=== PATIENT | female | born 1970 | race Caucasian/White ===

== ENCOUNTER 2017-09-16 12:20 | Emergency (ER) | payer MEDICARE, BC ==
[2017-09-16 12:33] VITALS: BP 140/55
--- NOTE | 2017-09-16 13:28 | EDM.PDOC ---
ED HPI GENERAL MEDICAL PROBLEM - General Chief Complaint: General Stated Complaint: RIGHT HEEL PAIN Time Seen by Provider: 09/16/17 13:05 Source of Information: Reports: Patient History Limitations: Reports: No Limitations - History of Present Illness INITIAL COMMENTS - FREE TEXT/NARRATIVE: 47 YO WF presents to ER with 3 days of right heel pain. Pt denies any injury. Pt reports pain is worse in am or walking barefoot. Pt denies any skin changes or redness swelling to foot. Pt denies any previous foot pain or injuries. Pt reports she wears flipflops a lot. Onset Date: 09/13/17 Duration: Day(s): (3) Location: Reports: Lower Extremity, Right Quality: Reports: Ache Severity: Mild Improves with: Reports: Rest Worsens with: Reports: Movement Associated Symptoms: Reports: No Other Symptoms Treatments RADIOACTIVITY TECHNICIAN: Reports: Acetaminophen, Other (see below) Other Treatments RADIOACTIVITY TECHNICIAN: Rup Rub - Related Data Allergies Allergy/AdvReac Type Severity Reaction Status Date / Time ibuprofen Allergy Airway Verified 09/16/17 12:33 Tightness Home Meds: Home Meds Cetirizine [ZyrTEC] 10 mg PO BID 05/30/15 [History] Gabapentin [Gabapentin] 300 - 600 mg PO ASDIRECTED PRN 05/30/15 [History] Glucagon,Human Recombinant [Glucagon Emergency Kit] 1 mg PO ASDIRECTED PRN 05/30 [History] Insulin Lispro [Humalog] 45 - 60 units SQ ASDIRECTED 05/30/15 [History] Levothyroxine 150 mcg PO ACBREAKFAST 05/30/15 [History] Lisinopril [Lisinopril] 10 mg PO DAILY 05/30/15 [History] Milnacipran [Savella] 50 mg PO BID 05/30/15 [History] Topiramate [Topiramate] 100 mg PO BEDTIME 05/30/15 [History] Venlafaxine HCl [Venlafaxine ER] 150 mg PO DAILY 05/30/15 [History] atorvaSTATin [Lipitor] 20 mg PO DAILY 05/30/15 [History] cloNIDine HCl [Clonidine HCl] 0.1 mg PO BID 05/30/15 [History] Aspirin [Halfprin] 81 mg PO BRK 06/05/16 [History] Calcium Citrate/Vitamin D3 [Calcium Citrate + D] 1 tab PO BIDMEALS 06/05/16 [ History] Cholecalciferol (Vitamin D3) [D-2000] 2,000 unit PO DAILY 06/05/16 [History] Cyclobenzaprine [Flexeril] 10 mg PO BID PRN 06/05/16 [History] Diclofenac Sodium [Voltaren] 75 mg PO BIDMEALS PRN 06/05/16 [History] Multivitamin [Multivitamins] 1 each PO DAILY 06/05/16 [History] Ranitidine HCl [Ranitidine] 150 mg PO ASDIRECTED PRN 06/05/16 [History] Rup Rub 1 applic TOP TID 06/05/16 [History] metFORMIN [Glucophage XR] 1,000 mg PO DAILY 06/05/16 [History] traMADol [Ultram] 50 mg PO ASDIRECTED PRN 06/05/16 [History] Past Medical History HEENT History: Reports: Cataract, Impaired Vision Cardiovascular History: Reports: Blood Clots/VTE/DVT, High Cholesterol, Hypertension Respiratory History: Reports: Sleep Apnea Gastrointestinal History: Reports: None Other Gastrointestinal History: gastric bypass with revision Genitourinary History: Reports: None Other OB/BYN History: hystroectomy Musculoskeletal History: Reports: Fracture, Fibromyalgia Neurological History: Reports: Migraines Psychiatric History: Reports: Depression Endocrine/Metabolic History: Reports: Diabetes, Type I Oncologic (Cancer) History: Reports: Squamous Cell Carcinoma Dermatologic History: Reports: Other (See Below) Other Dermatologic History: Rash - Infectious Disease History Infectious Disease History: Reports: Shingles - Past Surgical History HEENT Surgical History: Reports: Cataract Surgery Female Surgical History: Reports: Section, Hysterectomy Neurological Surgical History: Reports: None Musculoskeletal Surgical History: Reports: None Social & Family History - Family History Family Medical History: Noncontributory Cardiac: Reports: Angina, Hypertension Psychiatric: Reports: Depression - Tobacco Use Smoking Status *Q: Never Smoker Second Hand Smoke Exposure: No - Caffeine Use Caffeine Use: Reports: None - Alcohol Use Days Per Week of Alcohol Use: 0 - Recreational Drug Use Recreational Drug Use: No ED ROS GENERAL - Review of Systems Review Of Systems: See Below Constitutional: Reports: No Symptoms HEENT: Reports: No Symptoms Respiratory: Reports: No Symptoms Cardiovascular: Reports: No Symptoms Endocrine: Reports: No Symptoms GI/Abdominal: Reports: No Symptoms : Reports: No Symptoms Musculoskeletal: Reports: Foot Pain (right heel) Skin: Reports: No Symptoms Neurological: Reports: No Symptoms Psychiatric: Reports: No Symptoms Hematologic/Lymphatic: Reports: No Symptoms Immunologic: Reports: No Symptoms ED EXAM, GENERAL - Physical Exam Exam: See Below Exam Limited By: No Limitations General Appearance: Alert, WD/WN, No Apparent Distress Neck: Normal Inspection, Supple, Non-Tender, Full Range of Motion Respiratory/Chest: No Respiratory Distress, Lungs Clear, Normal Breath Sounds, No Accessory Muscle Use, Chest Non-Tender Cardiovascular: Normal Peripheral Pulses, Regular Rate, Rhythm, No Edema, No Gallop, No JVD, No Murmur, No Rub GI/Abdominal: Normal Bowel Sounds, Soft, Non-Tender, No Organomegaly, No Distention, No Abnormal Bruit, No Mass Back Exam: Normal Inspection, Full Range of Motion, NT Extremities: Normal Range of Motion, No Pedal Edema, Normal Capillary Refill, Other (right heel pain- point tender to mid-lateral aspect of right heel). No: Pallor, Redness Neurological: Alert, Oriented, CN II-XII Intact, Normal Cognition, Normal Gait, Normal Reflexes, No Motor/Sensory Deficits Psychiatric: Normal Affect, Normal Mood Skin Exam: Warm, Dry, Intact, Normal Color, No Rash Lymphatic: No Adenopathy Course - Vital Signs Last Recorded V/S: Last Vital Signs Temp 35.8 C 09/16/17 12:26 Pulse 95 09/16/17 12:26 Resp 18 09/16/17 12:26 BP 140/55 L 09/16/17 12:26 Pulse Ox 100 09/16/17 12:26 - Orders/Labs/Meds Orders: Active Orders 24 hr Category Date Time Status Foot Comp Min 3V Rt [CR] Stat Exams 09/16/17 12:58 Ordered Departure - Departure Time of Disposition: 13:33 Disposition: Home, Self-Care 01 Condition: Good Clinical Impression: Pain of right heel - Discharge Information Instructions: Flat Feet, Plantar Fasciitis Referrals: Gill Burger MD [Primary Care Provider] - - My Orders Last 24 Hours: My Active Orders 09/16/17 12:58 Foot Comp Min 3V Rt [CR] Stat - Assessment/Plan Last 24 Hours: My Active Orders 09/16/17 12:58 Foot Comp Min 3V Rt [CR] Stat Assessment:: 1. right heel pain- possible neuroma? Plan: 1. discharge home 2. follow up with PCP for podiatry referral 3. Naproxyn for pain PRN 4. cushion heel cup 5. return to ER for worsening symptoms
== END 2017-09-16 13:41 | disposition home or self-care (01) ==
LOC: KA.ED 12:20
DX: M79.671 Pain in right foot (principal)
CPT/HCPCS: 73630-RT; 99283

== ENCOUNTER 2021-07-27 11:19 | Observation (INO) | payer MEDICARE, OTHER ==
[2021-07-27] MEDS ORDERED: Sodium Chloride 0.9% 1,000 ML IV ONE (11:30)
[2021-07-27] MEDS: Ondansetron 4 MG/2 ML SDV IV PRN ×3 (11:59→20:40)
[2021-07-27] MEDS: cefTRIAXone 1 GM Vial IVPUSH SCH (12:00)
[2021-07-27] MEDS: Morphine 2 MG/ML SYRINGE IVPUSH PRN ×2 (12:00→20:40)
[2021-07-27] MEDS ORDERED: INSULIN LISPRO 100 UNIT/ML SQ SCH (16:00)
[2021-07-27] MEDS ORDERED: [UNRECOGNIZED DRUG - OTHER] SQ SCH (16:00)
[2021-07-27] MEDS ORDERED: Cyclobenzaprine 5 MG Tab PO PRN (19:31)
[2021-07-27] MEDS ORDERED: Albuterol 8 GM Inhaler INH PRN (19:31)
[2021-07-27] MEDS ORDERED: Cyanocobalamin (Vitamin B12) 1,000 MCG/ML SDV IM SCH (19:45)
[2021-07-27] MEDS: Calcium Citrate/Vitamin D3 315 MG-250 Unit Tab PO SCH (20:54)
[2021-07-27] MEDS: cloNIDine 0.1 MG Tab PO SCH (20:54)
[2021-07-28] MEDS: Sodium Chloride 0.9% 1,000 ML IV SCH ×2 (02:35→15:41)
[2021-07-28] MEDS: Levothyroxine 100 MCG Tab PO SCH ×2 (06:06→06:32)
--- NOTE | 2021-07-28 08:53 | PCM.PN ---
- General Info Date of Service: 07/28/21 Functional Status: Reports: Pain Controlled, Tolerating Diet (Starting to take orals well without nausea or vomiting), Ambulating, New Symptoms (/Nausea and vomiting.) - Review of Systems General: Reports: Weakness, Fatigue. Denies: Chills HEENT: Reports: No Symptoms Pulmonary: Reports: No Symptoms Cardiovascular: Reports: No Symptoms Gastrointestinal: Denies: Abdominal Pain, Decreased Appetite (Tight slightly picking up), Diarrhea, Nausea, Vomiting Genitourinary: Reports: Dysuria Musculoskeletal: Reports: No Symptoms Skin: Reports: Dryness Neurological: Denies: Confusion Psychiatric: Denies: No Symptoms, Confusion - Patient Data Vitals - Most Recent: Last Vital Signs Temp 98.2 F 07/28/21 06:35 Pulse 85 07/28/21 06:35 Resp 16 07/28/21 06:35 BP 113/40 L 07/28/21 06:35 Pulse Ox 99 07/28/21 06:35 Weight - Most Recent: 284 lb 11.2 oz I&O - Last 24 Hours: Intake & Output 07/27/21 07/28/21 07/28/21 22:59 06:59 14:59 Intake Total 880 2424 Output Total 200 300 Balance 680 2124 Lab Results Last 24 Hours: Laboratory Results - last 24 hr 07/27/21 Range/Units 11:23 SARS CoV-2 RNA Rapid THA Negative (NEGATIVE) Med Orders - Current: Current Medications Albuterol (Albuterol 8 Gm Inhaler) 0 gm INH Q4H PRN PRN Reason: Wheezing or Cough Aspirin (Aspirin 81 Mg Tab.Ec) 81 mg PO DAILY [facility] Atorvastatin Calcium (Atorvastatin 40 Mg Tab) 20 mg PO DAILY [facility] Calcium Citrate (Calcium Citrate/Vitamin D3 315 Mg-250 Unit Tab) 1 tab PO BIDMEALS [facility] Last Admin: 07/27/21 20:54 Dose: 1 tab Documented by: Ceftriaxone Sodium (Ceftriaxone 1 Gm Vial) 1 gm IVPUSH Q24H [facility] Last Admin: 07/27/21 12:00 Dose: 1 gm Documented by: Cetirizine HCl (Cetirizine 10 Mg Tab) 10 mg PO DAILY [facility] Cholecalciferol (Cholecalciferol (Vitamin D3) 25 Mcg Tab) 250 mcg PO DAILY [facility] Clonidine HCl (Clonidine 0.1 Mg Tab) 0.1 mg PO BID [facility] Last Admin: 07/27/21 20:54 Dose: Not Given Documented by: Cyclobenzaprine HCl (Cyclobenzaprine 5 Mg Tab) 10 mg PO BID PRN PRN Reason: Muscle Spasm - Painful Sodium Chloride (Normal Saline) 1,000 mls @ 75 mls/hr IV ASDIRECTED [facility] Last Admin: 07/28/21 02:35 Dose: 75 mls/hr Documented by: Levothyroxine Sodium (Levothyroxine 100 Mcg Tab) 150 mcg PO ACBREAKFAST [facility] Last Admin: 07/28/21 06:32 Dose: Not Given Documented by: Morphine Sulfate (Morphine 2 Mg/Ml Syringe) 2 mg IVPUSH Q2H PRN PRN Reason: Pain (severe 7-10) Last Admin: 07/27/21 20:40 Dose: 2 mg Documented by: Insulin Lispro 100 Unit/Ml In Insin Pump Own Med) 45 - 60 units SQ ASDIRECTED [facility] Ondansetron HCl (Ondansetron 4 Mg/2 Ml Sdv) 4 mg IV Q4H PRN PRN Reason: Nausea/Vomiting Last Admin: 07/27/21 20:40 Dose: 4 mg Documented by: Pharmacy Consult (Pharmacy Consult Order) 1 each .XX ASDIRECTED [facility] Discontinued Medications Sodium Chloride (Normal Saline) 1,000 mls @ 999 mls/hr IV .BOLUS ONE Stop: 07/27/21 12:30 Last Admin: 07/27/21 11:43 Dose: 999 mls/hr Documented by: Lisinopril (Lisinopril 10 Mg Tab) 20 mg PO DAILY [facility] - Exam General: Alert, Oriented, Cooperative Lungs: Clear to Auscultation, Normal Respiratory Effort Cardiovascular: Regular Rate, Regular Rhythm GI/Abdominal Exam: No: Normal Bowel Sounds, Distended (Female) Exam: Deferred Back Exam: No: CVA Tenderness (L), CVA Tenderness (R) Extremities: Other (Slight nonpitting edema bilateral lower extremity however significantly obese despite 25 pound weight loss recently) Peripheral Pulses: 2+: Radial (L), Radial (R) Skin: Warm, Dry, Intact Neurological: Normal Gait, Normal Speech Psy/Mental Status: Alert, Normal Affect, Normal Mood - Patient Data Lab Results Last 24 hrs: Laboratory Results - last 24 hr 07/27/21 Range/Units 11:23 SARS CoV-2 RNA Rapid THA Negative (NEGATIVE) Sepsis Event Note - Evaluation Sepsis Screening Result: No Definite Risk - Focused Exam Vital Signs: Vital Signs Temp Pulse Resp BP BP Pulse Ox 07/28/21 06:35 98.2 F 85 16 113/40 L 99 07/28/21 03:00 98.0 F 91 16 133/42 L 96 07/27/21 22:40 98.1 F 96 16 140/47 L 99 07/27/21 20:54 126/46 L - Problem List Review Problem List Initiated/Reviewed/Updated: Yes - Plan Plan:: History summary Lucero is a 51yr female that was admitted into OBS status yesterday 07/27 by Deana Shaver NP [facility] due to dehydration significant nausea and vomiting poor oral intake. See GI history below however patient has had GJ anastomosis dilatation procedures by gastroenterology however has had recent severe upper abdominal pain with emesis with significant weight loss. GI suspected stent irritation/dilatation. Consultations, Admitting provider discussed case with bariatric surgeon, Recommendations included small sips of liquid every 10 minutes, avoid extreme temperatures of liquids, goal of 1/2 gallon of liquid per day, protein shakes, liquid diet. Referral to bariatric surgery previously placed and appt scheduled for 08/16/21. MIKAELA Henriquez, suggests pain can worsen over the 72 hours post stent d/t expansion, but if continues to be worse after that then the stent will need to be removed. Pertinent GI history 07/26/21: Had a 15 mm axial stent placed to the GJ anastomosis and balloon dilation by MIKAELA Henriquez. 07/12/21: Had GJ anastomosis dilated from 12 to 18 mm by MIKAELA Henriquez. Was also referred to bariatric surgery at this time. 06/08/21: Initially evaluated for vomiting and nausea by admitting provider, Symptoms had started on approximately 06/02/21. Hospital course 07/28/2021; patient is improving today, close to euvolemic status, no nausea vomiting or diarrhea, no more abdominal pain, last Zofran last night, increasing in appetite. Starting to take increased n.p.o. however slowly with power aid. Outpatient pertinent labs, white count 7.5, H&H normal, BUN/creatinine potassium normal, albumin 3.2, alk phos AST/ALT normal. Lipase low at 6 Primary hospital problems --Abdominal pain, suspect stent irritation/dilatation --Dehydration, doing, near euvolemic stage --Nausea/vomiting, controlled with Zofran --UTI, E. coli, Rocephin, will change to p.o. upon improved intolerance. Given tendon calcification on right ankle x-ray will avoid fluoroquinolones. --First-degree right ankle sprain Disposition/overall plan --She is clinically improving, will advance diet as tolerate today towards the end of the day maybe soup with soft noodles --Continue IV fluids --Scheduled Zofran, QTc 421 --CMP in am
[2021-07-28] MEDS ORDERED: Cholecalciferol (Vitamin D3) 25 MCG Tab PO SCH (09:00)
[2021-07-28] MEDS ORDERED: Lisinopril 10 MG Tab PO SCH (09:00)
[2021-07-28] MEDS: Calcium Citrate/Vitamin D3 315 MG-250 Unit Tab PO SCH ×2 (09:28→18:12)
[2021-07-28] MEDS: Cetirizine 10 MG Tab PO SCH (09:30)
[2021-07-28] MEDS: atorvaSTATin 40 MG Tab PO SCH (09:30)
[2021-07-28] MEDS: cloNIDine 0.1 MG Tab PO SCH ×2 (09:31→21:25)
[2021-07-28] MEDS: Aspirin 81 MG Tab.EC PO SCH (09:33)
[2021-07-28] MEDS: Ondansetron 4 MG/2 ML SDV IV PRN (09:46)
[2021-07-28] MEDS ORDERED: Ondansetron 4 MG/2 ML SDV IV SCH (10:45)
[2021-07-28] MEDS: cefTRIAXone 1 GM Vial IVPUSH SCH (11:40)
[2021-07-28] MEDS: Ondansetron 4 MG/2 ML SDV IV SCH ×2 (15:21→21:19)
[2021-07-28] MEDS: VITAMIN D3 PO SCH (21:22)
[2021-07-28] MEDS: Morphine 2 MG/ML SYRINGE IVPUSH PRN (21:26)
[2021-07-29] MEDS: Ondansetron 4 MG/2 ML SDV IV SCH ×2 (04:20→09:58)
[2021-07-29] MEDS: Sodium Chloride 0.9% 1,000 ML IV SCH (04:45)
[2021-07-29] MEDS: Levothyroxine 100 MCG Tab PO SCH ×2 (06:22→06:30)
[2021-07-29 07:40] LABS: ANION GAP 11.4 mmol/L (5-15); CHLORIDE,CL 106 mmol/L (98-107); SODIUM,NA 141 mmol/L (136-145)
[2021-07-29] MEDS: atorvaSTATin 40 MG Tab PO SCH (09:03)
[2021-07-29] MEDS: Aspirin 81 MG Tab.EC PO SCH (09:03)
[2021-07-29] MEDS: Calcium Citrate/Vitamin D3 315 MG-250 Unit Tab PO SCH (09:04)
[2021-07-29] MEDS: Cetirizine 10 MG Tab PO SCH (09:04)
[2021-07-29] MEDS: cloNIDine 0.1 MG Tab PO SCH (09:05)
[2021-07-29] MEDS: VITAMIN D3 PO SCH (09:07)
--- NOTE | 2021-07-29 09:17 | PCM.DCSUM1 ---
Discharge Summary - Hospital Course Diagnosis: Stroke: No - Discharge Data Discharge Date: 07/29/21 Discharge Disposition: Home, Self-Care 01 Condition: Good - Referral to Home Health Primary Care Physician: Deana Shaver NP - Patient Instructions Diet: Usual Diet as Tolerated Activity: As Tolerated Driving: May Drive Today Showering/Bathing: May Shower Notify Provider of: Fever, Increased Pain, Nausea and/or Vomiting - Discharge Plan *PRESCRIPTION DRUG MONITORING PROGRAM REVIEWED*: Not Applicable *COPY OF PRESCRIPTION DRUG MONITORING REPORT IN PATIENT HAIDER: Not Applicable Prescriptions/Med Rec: Amoxicillin/Clavulanate K [Augmentin 500-125 MG] 1 tab PO BID #8 tablet Home Medications: Home Meds Cetirizine [ZyrTEC] 10 mg PO DAILY 05/30/15 [History] Gabapentin 300 - 600 mg PO ASDIRECTED PRN 05/30/15 [History] Glucagon,Human Recombinant [Glucagon Emergency Kit] 1 mg PO ASDIRECTED PRN 05/30/15 [History] Insulin Lispro [Humalog] 45 - 60 units SQ ASDIRECTED 05/30/15 [History] Levothyroxine 150 mcg PO ACBREAKFAST 05/30/15 [History] Lisinopril 20 mg PO DAILY 05/30/15 [History] Milnacipran [Savella] 50 mg PO BID 05/30/15 [History] Venlafaxine HCl [Venlafaxine ER] 150 mg PO DAILY 05/30/15 [History] atorvaSTATin [Lipitor] 20 mg PO DAILY 05/30/15 [History] Aspirin [Halfprin] 81 mg PO BRK 06/05/16 [History] Calcium Citrate/Vitamin D3 [Calcium Citrate + D] 1 tab PO BIDMEALS 06/05/16 [History] Cholecalciferol (Vitamin D3) [D3-2000] 10,000 unit PO DAILY 06/05/16 [History] Cyclobenzaprine [Flexeril] 10 mg PO BID PRN 06/05/16 [History] Diclofenac Sodium [Voltaren] 75 mg PO BIDMEALS PRN 06/05/16 [History] Multivitamin [Multivitamins] 1 each PO DAILY 06/05/16 [History] Ranitidine HCl [Ranitidine] 150 mg PO ASDIRECTED PRN 06/05/16 [History] Rup Rub 1 applic TOP TID 06/05/16 [History] traMADol [Ultram] 50 mg PO ASDIRECTED PRN 06/05/16 [History] cloNIDine [Catapres] 0.1 mg PO BID 03/18/18 [History] metFORMIN [Glucophage XR] 2,000 mg PO 1800 03/18/18 [History] Albuterol Sulfate [Albuterol Sulfate HFA] 2 inh INH Q4H PRN 07/27/21 [History] Cyanocobalamin (Vitamin B12) [Vitamin B12] 1,000 mcg IM ASDIRECTED 07/27/21 [Hi story] L.acidoph,Paracasei, B.lactis [Probiotic] 1 cap PO DAILY 07/27/21 [History] Magnesium Oxide 250 mg PO BEDTIME 07/27/21 [History] Milnacipran HCl [Savella] 100 mg PO BID 07/27/21 [History] Ondansetron [Ondansetron ODT] 4 mg PO Q4HR PRN 07/27/21 [History] Promethazine [Phenergan] 0.1 - 0.2 ml TOP ASDIRECTED PRN 07/27/21 [History] Pseudoephedrine HCl [Sudafed] 60 mg PO Q4H PRN 07/27/21 [History] Topiramate [Topamax] 25 mg PO DAILY 07/27/21 [History] Venlafaxine [Effexor XR] 37.5 mg PO DAILY 07/27/21 [History] Amoxicillin/Clavulanate K [Augmentin 500-125 MG] 1 tab PO BID #8 tablet 07/29/21 [Rx] Referrals: Deana Shaver T[facility] [Primary Care Provider] - (anytime next week. ) - Discharge Summary/Plan Comment DC Time >30 min.: No Discharge Summary/Plan Comment: Medication changes/adjustments upon discharge --Augmentin, 500/125, 1 tab p.o. twice daily x4 days for her UTI - General Info Functional Status: Reports: Pain Controlled - Review of Systems General: Reports: No Symptoms HEENT: Reports: No Symptoms Pulmonary: Reports: No Symptoms Cardiovascular: Reports: No Symptoms Gastrointestinal: Reports: No Symptoms Genitourinary: Reports: No Symptoms Musculoskeletal: Reports: No Symptoms - Patient Data Vitals - Most Recent: Last Vital Signs Temp 97.0 F 07/29/21 06:25 Pulse 89 07/29/21 06:25 Resp 20 07/29/21 06:25 BP 137/59 L 07/29/21 09:05 Pulse Ox 96 07/29/21 06:25 Weight - Most Recent: 284 lb 11.2 oz I&O - Last 24 hours: Intake & Output 07/28/21 07/29/21 07/29/21 22:59 06:59 14:59 Intake Total 420 100 Output Total 1250 625 Balance -830 -525 Lab Results - Last 24 hrs: Laboratory Results - last 24 hr 07/29/21 Range/Units 07:06 Sodium 141 (136-145) mmol/L Potassium 3.6 (3.5-5.1) mmol/L Chloride 106 (98-107) mmol/L Carbon Dioxide 27.2 (21.0-32.0) mmol/L Anion Gap 11.4 (5-15) mmol/L BUN 3 L (7-18) mg/dL Creatinine 0.64 (0.51-1.17) mg/dL Est Cr Clr Drug Dosing 85.94 mL/min Estimated GFR (MDRD) > 60 mL/min Glucose 95 (70-140) mg/dL Calcium 8.3 L (8.7-10.3) mg/dL Total Bilirubin 0.4 (0.2-1.0) mg/dL AST 14 L (15-37) U/L ALT 19 (14-63) U/L Alkaline Phosphatase 124 H (46-116) U/L Total Protein 5.6 L (6.4-8.2) g/dL Albumin 2.12 L (3.40-5.00) g/dL Med Orders - Current: Current Medications Albuterol (Albuterol 8 Gm Inhaler) 0 gm INH Q4H PRN PRN Reason: Wheezing or Cough Aspirin (Aspirin 81 Mg Tab.Ec) 81 mg PO DAILY [facility] Last Admin: 07/29/21 09:03 Dose: 81 mg Documented by: Atorvastatin Calcium (Atorvastatin 40 Mg Tab) 20 mg PO DAILY [facility] Last Admin: 07/29/21 09:03 Dose: 20 mg Documented by: Calcium Citrate (Calcium Citrate/Vitamin D3 315 Mg-250 Unit Tab) 1 tab PO BIDMEALS [facility] Last Admin: 07/29/21 09:04 Dose: 1 tab Documented by: Ceftriaxone Sodium (Ceftriaxone 1 Gm Vial) 1 gm IVPUSH Q24H [facility] Last Admin: 07/28/21 11:40 Dose: 1 gm Documented by: Cetirizine HCl (Cetirizine 10 Mg Tab) 10 mg PO DAILY [facility] Last Admin: 07/29/21 09:04 Dose: 10 mg Documented by: Clonidine HCl (Clonidine 0.1 Mg Tab) 0.1 mg PO BID [facility] Last Admin: 07/29/21 09:05 Dose: 0.1 mg Documented by: Cyclobenzaprine HCl (Cyclobenzaprine 5 Mg Tab) 10 mg PO BID PRN PRN Reason: Muscle Spasm - Painful Sodium Chloride (Normal Saline) 1,000 mls @ 75 mls/hr IV ASDIRECTED [facility] Last Admin: 07/29/21 04:45 Dose: 75 mls/hr Documented by: Levothyroxine Sodium (Levothyroxine 100 Mcg Tab) 150 mcg PO ACBREAKFAST [facility] Last Admin: 07/29/21 06:30 Dose: Not Given Documented by: Morphine Sulfate (Morphine 2 Mg/Ml Syringe) 2 mg IVPUSH Q2H PRN PRN Reason: Pain (severe 7-10) Last Admin: 07/28/21 21:26 Dose: 2 mg Documented by: Insulin Lispro 100 Unit/Ml In Insin Pump Own Med) 45 - 60 units SQ ASDIRECTED [facility] Ondansetron HCl (Ondansetron 4 Mg/2 Ml Sdv) 4 mg IV Q6H [facility] Last Admin: 07/29/21 04:20 Dose: 4 mg Documented by: Vitamin D3 1000 Iu (Per Gummy - Ptom) 5 each PO BID [facility] Last Admin: 07/29/21 09:07 Dose: 5 each Documented by: Pharmacy Consult (Pharmacy Consult Order) 1 each .XX ASDIRECTED [facility] Discontinued Medications Cholecalciferol (Cholecalciferol (Vitamin D3) 25 Mcg Tab) 250 mcg PO DAILY [facility] Last Admin: 07/28/21 09:34 Dose: Not Given Documented by: Sodium Chloride (Normal Saline) 1,000 mls @ 999 mls/hr IV .BOLUS ONE Stop: 07/27/21 12:30 Last Admin: 07/27/21 11:43 Dose: 999 mls/hr Documented by: Lisinopril (Lisinopril 10 Mg Tab) 20 mg PO DAILY [facility] Ondansetron HCl (Ondansetron 4 Mg/2 Ml Sdv) 4 mg IV Q4H PRN PRN Reason: Nausea/Vomiting Last Admin: 07/28/21 09:46 Dose: 4 mg Documented by: Ondansetron HCl (Ondansetron 4 Mg/2 Ml Sdv) 4 mg IV Q6H [facility] Last Admin: 07/28/21 14:40 Dose: Not Given Documented by: - Exam Quality Assessment: Denies: Supplemental Oxygen General: Reports: Alert, Oriented Neck: Reports: Supple Lungs: Reports: Clear to Auscultation, Normal Respiratory Effort Cardiovascular: Reports: Regular Rate, Regular Rhythm GI/Abdominal Exam: Soft Extremities: No Pedal Edema Skin: Reports: Warm, Dry, Intact
[2021-07-29 12:06] VITALS: BP 122/50; PULSE 75
[2021-07-29] MEDS: cefTRIAXone 1 GM Vial IVPUSH SCH (12:13)
== END 2021-07-29 14:25 | disposition home or self-care (01) ==
LOC: KA.MS 11:19
PROVIDERS: ADMIT Nurse Practitioner Family; ATTEND Family Medicine
DX: K91.89 Other postprocedural complications and disorders of digestive system (principal); E86.0 Dehydration; R11.2 Nausea with vomiting, unspecified; N39.0 Urinary tract infection, site not specified; B96.20 Unspecified Escherichia coli [E. coli] as the cause of diseases classified elsewhere; Z98.84 Bariatric surgery status; Z93.4 Other artificial openings of gastrointestinal tract status; Z20.822 Contact with and (suspected) exposure to COVID-19
CPT/HCPCS: 36415; 80053; 96361; 96374; 96375; 96376; A9270-GY; G0378; G0379; J0696; J2270; J2405; J7030; J7040; U0002